=== PATIENT | female | born 1945 | race American Indian/Alaskan Native ===

== ENCOUNTER 2017-09-18 10:48 | Outpatient (CLI) | payer MEDICARE, OTHER ==
--- NOTE | 2017-09-18 15:24 | Mammography Report ---
BONE DEXA:09/18/17 10:48:00 CLINICAL: Postmenopausal. COMPARISON: 12/14/12 TECHNIQUE: Two site bone DEXA performed on an Hologic scanner. FINDINGS: The average BMD of the lumbar spine L1-L4 is 1.225g/cm squared with a T-score of +1.6 and a Z-score of +3.8. This compares to 1.157g/cm squared on the last exam and represents a +5.8% change from the previous baseline. The average BMD of the left hip is 1.084g/cm squared with a T-score of +1.2 and a Z-score of +2.7. This compares to 1.088g/cm squared on the last exam and represents a -0.4% change from the previous baseline. IMPRESSION: 1. WHO classification: Normal with average fracture risk based on both spine and left hip measurements. 2. A moderate improvement in spine BMD and a slight decline in left hip BMD compared to the previous exam. RECOMMENDATION: Clinical correlation and routine screening. DEFINITIONS: BMD = Bone Mineral Density T-score = BMD related to mean peak bone mass of young adult (mean expressed in Standard Deviation) Z-score = Age matched BMD expressed in SD World Health Organization (WHO) Diagnostic Criteria Normal T-score > -1 SD Osteopenia T-score between -1 and -2.4 SD Osteoporosis T-score -2.5 SD or below NOTE: BMD is not the only risk factor for fracture; also consider factors such as the patient's age, risk of falling, previous osteoporotic fracture, family history of osteoporotic fractures, current smoker, and low body weight. Z-scores are not calculated if >80 years of age.
--- NOTE | 2017-09-18 16:19 | Mammography Report ---
BILATERAL DIGITAL SCREENING MAMMOGRAM with CAD : 09/18/17 10:48:00 CLINICAL: Routine screening. COMPARISON:12/01/15 FINDINGS: The breasts are heterogeneously dense, which may obscure small masses. No mass, architectural distortion or suspicious calcifications. IMPRESSION: No mammographic evidence of malignancy. BI-RADS CATEGORY: 2 -- Benign RECOMMENDATION: Routine mammographic screening in one year. COMMENT: Patient follow-up letters are generated by our [employer] application.
== END 2017-09-18 10:49 | disposition home or self-care (01) ==
LOC: SPVWC 10:48
PROVIDERS: ATTEND Family Medicine
DX: Z12.31 Encounter for screening mammogram for malignant neoplasm of breast (principal); Z13.820 Encounter for screening for osteoporosis; F17.210 Nicotine dependence, cigarettes, uncomplicated; Z78.0 Asymptomatic menopausal state
CPT/HCPCS: 77067; 77080

== ENCOUNTER 2018-10-08 11:42 | Outpatient (CLI) | payer MEDICARE, OTHER ==
--- NOTE | 2018-10-08 14:44 | Mammography Report ---
BILATERAL DIGITAL SCREENING MAMMOGRAM WITH CAD INDICATION: Routine screening mammography. TECHNIQUE: Digital bilateral 2D mammography was obtained in the craniocaudal and mediolateral obliq ue projections. This examination was interpreted with the benefit of Computer-Aided Detection analysi s. COMPARISON: 09/18/2017 FINDINGS: Breast Density: The breasts are heterogeneously dense, which may obscure small masses. No mass, architectural distortion or suspicious calcifications. IMPRESSION:No mammographic evidence of malignancy. BI-RADS Category 2: Benign. No mammographic evidence of malignancy. Recommend routine screening ma mmography in one year. A "normal" or negative report should not discourage follow up or biopsy of a clinically significant f inding. A written summary of these findings will be mailed to the patient. The patient will be entered into a mammography reporting system which will generate a reminder letter for the patient's next appointmen t at the appropriate interval. The [employer] recommends yearly mammograms starting at age 40 and continuing as l sandra as a woman is in good health. Breast MRI is recommended for women with an approximate 20-25% or greater lifetime risk of breast cancer, including women with a strong family history of breast or ova claudio cancer or who have been treated for Hodgkin's disease. Signer Name: Jeet Santamaria MD Signed: 10/08/2018 2:40 PM Workstation Name: [id number]
== END 2018-10-08 11:43 | disposition home or self-care (01) ==
LOC: SPVWC 11:42
PROVIDERS: ATTEND Family Medicine
DX: Z12.31 Encounter for screening mammogram for malignant neoplasm of breast (principal)
CPT/HCPCS: 77067

== ENCOUNTER 2020-10-19 12:18 | Outpatient (CLI) | payer MEDICARE, OTHER ==
--- NOTE | 2020-10-19 17:59 | Mammography Report ---
DIGITAL SCREENING MAMMOGRAM WITH CAD, 10/19/2020 CLINICAL INFORMATION / INDICATION: Routine screening mammography. SCREENING MAMMO TECHNIQUE: Digital bilateral 2D mammography was obtained in the craniocaudal and mediolateral obliqu e projections. This examination was interpreted with the benefit of Computer-Aided Detection analysis . COMPARISON: 10/08/2018, 09/18/2017 FINDINGS: Breast Density: The breasts are heterogeneously dense, which may obscure small masses. No dominant mass, suspicious calcifications, or architectural distortion in either breast. There are stable benign-appearing nodules on the right. IMPRESSION: No mammographic evidence of malignancy. Follow up recommendation: Routine yearly BI-RADS Category 2: Benign. A "normal" or negative report should not discourage follow up or biopsy of a clinically significant f inding. A written summary of these findings will be mailed to the patient. The patient will be entered into a mammography reporting system which will generate a reminder letter for the patient's next appointmen t at the appropriate interval. The [employer] recommends yearly mammograms starting at age 40 and continuing as l sandra as a woman is in good health. Breast MRI is recommended for women with an approximate 20-25% or greater lifetime risk of breast cancer, including women with a strong family history of breast or ova claudio cancer or who have been treated for Hodgkin's disease. Signer Name: Albert Chatman MD Signed: 10/19/2020 5:55 PM Workstation Name: [id number] [place]
== END 2020-10-19 12:19 | disposition home or self-care (01) ==
LOC: SPVWC 12:18
PROVIDERS: ATTEND Family Medicine
DX: Z12.31 Encounter for screening mammogram for malignant neoplasm of breast (principal); N64.89 Other specified disorders of breast
CPT/HCPCS: 77067

== ENCOUNTER 2021-12-07 10:37 | Outpatient (CLI) | payer MEDICARE, OTHER ==
--- NOTE | 2021-12-07 11:57 | Mammography Report ---
DEXA BONE DENSITY SCAN INDICATION: POSTMENOPAUSAL STATUS, AGE RELATED, post-menopausal COMPARISON: 09/18/2017 LUMBAR SPINE (L1-L4): Bone mineral density (BMD) is 1.187 g/cm2. T-score is 1.3 (standard deviations of Young Adult mean). LEFT FEMORAL NECK: Bone mineral density (BMD) is 0.726 g/cm2. T-score is -1.1 (standard deviations of Young Adult mean). DENSITOMETRY TRENDS: Lumbar change from prior study: Decrease 3.1%. Femoral neck change from previous study: Decrease 20.9%. IMPRESSION: 1. WHO Classification: Osteopenia. Fracture Risk: Increased. Signer Name: Vlad Buckner MD Signed: 12/07/2021 11:53 AM Workstation Name: [id number]
--- NOTE | 2021-12-08 08:25 | Mammography Report ---
DIGITAL SCREENING MAMMOGRAM WITH CAD, 12/07/2021 CLINICAL INFORMATION / INDICATION: Routine screening mammography. SCREENING MAMMO TECHNIQUE: Digital bilateral 2D mammography was obtained in the craniocaudal and mediolateral obliqu e projections. This examination was interpreted with the benefit of Computer-Aided Detection analysis . COMPARISON: 10/19/2020. FINDINGS: Breast Density: The breasts are heterogeneously dense, which may obscure small masses. No dominant mass, suspicious calcifications, or architectural distortion in either breast. Benign-appearing calcified nodules remain right breast. IMPRESSION: No mammographic evidence of malignancy. Follow up recommendation: Routine yearly screening mammogram. BI-RADS Category 2: BENIGN. A "normal" or negative report should not discourage follow up or biopsy of a clinically significant f inding. A written summary of these findings will be mailed to the patient. The patient will be entered into a mammography reporting system which will generate a reminder letter for the patient's next appointmen t at the appropriate interval. The [employer] recommends yearly mammograms starting at age 40 and continuing as l sandra as a woman is in good health. Breast MRI is recommended for women with an approximate 20-25% or greater lifetime risk of breast cancer, including women with a strong family history of breast or ova claudio cancer or who have been treated for Hodgkin's disease. Signer Name: Carlito Reed MD Signed: 12/08/2021 8:20 AM Workstation Name: [id number]
== END 2021-12-07 10:38 | disposition home or self-care (01) ==
LOC: SPVWC 10:37
PROVIDERS: ATTEND Family Medicine
DX: Z12.31 Encounter for screening mammogram for malignant neoplasm of breast (principal); N64.89 Other specified disorders of breast; M85.88 Other specified disorders of bone density and structure, other site; Z78.0 Asymptomatic menopausal state
CPT/HCPCS: 77067; 77080